=== PATIENT | female | born 1990 | race American Indian/Alaskan Native ===

== ENCOUNTER 2018-10-28 20:01 | Emergency (ER) | payer MEDICARE ==
[2018-10-28 20:14] VITALS: BP 150/113
--- NOTE | 2018-10-28 20:17 | Emergency Department Report ---
Blank Doc - Documentation Documentation: pt presents for packing removal states she had an abscses right axilla on monday only seen small amount of drainage no fever PMHx Lupus, HTN, CKD no tobacco non drinker +marijuana no other drug use
--- NOTE | 2018-10-28 20:17 | Emergency Department Report ---
- General Chief complaint: Recheck/Abnormal Lab/Rx Stated complaint: PACKING REMOVED Time Seen by Provider: 10/28/18 20:13 Source: patient Mode of arrival: Ambulatory Limitations: No Limitations - History of Present Illness Initial comments: pt is a 28 yo female who presents to the ED for packing removal from the right axilla. The patient states she had a I&D performed on the right axilla two days ago. Pt states she has only seen small amount of drainage. She denies fever or N/V/D. She is currently taking keflex. She has a hx of hidradenitis suppurativa. s PMHx Lupus, HTN, CKD no tobacco non drinker +marijuana no other drug use - Related Data Previous Rx's Medication Instructions Recorded Last Taken Type Acetaminophen/Codeine [Tylenol 1 tab PO Q4HR PRN #12 tablet 10/26/18 Unknown Rx /Codeine # 3 tab] cephALEXin [Keflex] 500 mg PO Q8HR #30 cap 10/26/18 Unknown Rx Chlorhexidine Gluconate [Hibiclens] 473 ml TP DAILY #1 liquid 10/28/18 Unknown Rx Allergies Allergy/AdvReac Type Severity Reaction Status Date / Time sulfamethoxazole Allergy Unknown Verified 10/28/18 20:04 [From Bactrim] trimethoprim [From Bactrim] Allergy Unknown Verified 10/28/18 20:04 Abscess Boil HPI - HPI Chief Complaint: Recheck/Abnormal Lab/Rx Stated Complaint: PACKING REMOVED Time Seen by Provider: 10/28/18 20:13 Home Medications: Previous Rx's Medication Instructions Recorded Last Taken Type Acetaminophen/Codeine [Tylenol 1 tab PO Q4HR PRN #12 tablet 10/26/18 Unknown Rx /Codeine # 3 tab] cephALEXin [Keflex] 500 mg PO Q8HR #30 cap 10/26/18 Unknown Rx Chlorhexidine Gluconate [Hibiclens] 473 ml TP DAILY #1 liquid 10/28/18 Unknown Rx Allergies/Adverse Reactions: Allergies Allergy/AdvReac Type Severity Reaction Status Date / Time sulfamethoxazole Allergy Unknown Verified 10/28/18 20:04 [From Bactrim] trimethoprim [From Bactrim] Allergy Unknown Verified 10/28/18 20:04 ED Review of Systems ROS: Stated complaint: PACKING REMOVED Other details as noted in HPI Comment: All other systems reviewed and negative ED Past Medical Hx - Past Medical History Previous Medical History?: Yes Hx Hypertension: Yes Hx Renal Disease: Yes Hx Arthritis: Yes Hx Asthma: Yes Additional medical history: lupus - Surgical History Past Surgical History?: Yes - Social History Smoking Status: Former Smoker Substance Use Type: Marijuana - Medications Home Medications: Home Medications Medication Instructions Recorded Confirmed Last Taken Type Acetaminophen/Codeine [Tylenol 1 tab PO Q4HR PRN #12 tablet 10/26/18 Unknown Rx /Codeine # 3 tab] cephALEXin [Keflex] 500 mg PO Q8HR #30 cap 10/26/18 Unknown Rx Chlorhexidine Gluconate [Hibiclens] 473 ml TP DAILY #1 liquid 10/28/18 Unknown Rx ED Physical Exam - General Limitations: No Limitations General appearance: alert, in no apparent distress - Head Head exam: Present: atraumatic, normocephalic - Eye Eye exam: Present: normal appearance, PERRL - ENT ENT exam: Present: mucous membranes moist - Respiratory Respiratory exam: Absent: respiratory distress - Neurological Exam Neurological exam: Present: alert, oriented X3 - Psychiatric Psychiatric exam: Present: normal affect, normal mood - Skin Skin exam: Present: other (right axilla with small incision that is clean, dry, intact with packing present, no obvious drainage, no induration, no fluctuance, no surrouding cellulitis, two other small areas with small opening with small amount of purulent drainage, no induration, no surrounding cellulitis) ED Course Vital Signs 10/28/18 20:09 Temperature 98.7 F Pulse Rate 105 H Respiratory 18 Rate Blood Pressure 150/113 O2 Sat by Pulse 100 Oximetry ED Medical Decision Making - Medical Decision Making packing removed and irrigated with 30 cc of saline, no surrounding cellulitis, no fluctuance/no induration, no obvious drainage pt has a couple small openings that are currently draining pt has hx of hidradenitis suppurativa, states they usually open and drain on their own regularly discussed with pt to complete her abx. pt given abx wash to use. discussed to wash and dry immediately. keep area clean and dry. do not get in hot tub, bath tub, or pool. follow up with pcp in the next 2-3 days. return to the ED for any new or worsening symptoms. Critical care attestation.: If time is entered above; I have spent that time in minutes in the direct care of this critically ill patient, excluding procedure time. ED Disposition Clinical Impression: Abscess packing removal Disposition: [id number] TO HOME OR SELFCARE Is pt being admited?: No Does the pt Need Aspirin: No Condition: Stable Instructions: Acute Wound Care (ED) Additional Instructions: please keep area clean and dry. may wash with abx wash then immediately dry. Please follow up with your primary care doctor in the next 2-3 days. return to the emergency room immediately for any new or worsening symptoms. Prescriptions: Chlorhexidine Gluconate [Hibiclens] 473 ml TP DAILY #1 liquid Referrals: VICKIE DUKE MD [Primary Care Provider] - 2-3 Days Time of Disposition: 20:42 Print Language: PRYDEINIG
== END 2018-10-28 20:44 | disposition home or self-care (01) ==
LOC: ED 20:01
DX: L02.411 Cutaneous abscess of right axilla (principal); I10 Essential (primary) hypertension; M19.90 Unspecified osteoarthritis, unspecified site; J45.909 Unspecified asthma, uncomplicated; F12.90 Cannabis use, unspecified, uncomplicated; Z87.891 Personal history of nicotine dependence; Z88.1 Allergy status to other antibiotic agents; Z88.2 Allergy status to sulfonamides
CPT/HCPCS: 99282

== ENCOUNTER 2019-03-25 07:33 | Emergency (ER) | payer MEDICARE ==
[2019-03-25] MEDS ORDERED: MORPHINE IM ONE (09:21)
[2019-03-25] MEDS ORDERED: ZOFRAN IM ONE (09:21)
[2019-03-25] MEDS ORDERED: XYLOCAINE 2% INFILTRATI ONE (09:21)
--- NOTE | 2019-03-25 09:25 | Emergency Department Report ---
- General Chief complaint: Skin/Abscess/Foreign Body Stated complaint: BOIL UNDER (L) ARM Time Seen by Provider: 03/25/19 09:19 Source: patient Mode of arrival: Ambulatory Limitations: No Limitations - History of Present Illness MD complaint: abscess/boil -: days(s) (3) Tetanus Up to Date: yes Location: LUE Severity: moderate Severity scale (0 -10): 5 Associated symptoms: denies other symptoms Treatments Prior to Arrival: none - Related Data Previous Rx's Medication Instructions Recorded Last Taken Type Acetaminophen/Codeine [Tylenol 1 tab PO Q4HR PRN #12 tablet 10/26/18 Unknown Rx /Codeine # 3 tab] cephALEXin [Keflex] 500 mg PO Q8HR #30 cap 10/26/18 Unknown Rx Chlorhexidine Gluconate [Hibiclens] 473 ml TP DAILY #1 liquid 10/28/18 Unknown R x Allergies Allergy/AdvReac Type Severity Reaction Status Date / Time sulfamethoxazole Allergy Unknown Verified 10/28/18 20:04 [From Bactrim] trimethoprim [From Bactrim] Allergy Unknown Verified 10/28/18 20:04 Abscess Boil HPI - HPI Chief Complaint: Skin/Abscess/Foreign Body Stated Complaint: BOIL UNDER (L) ARM Time Seen by Provider: 03/25/19 09:19 Home Medications: Previous Rx's Medication Instructions Recorded Last Taken Type Acetaminophen/Codeine [Tylenol 1 tab PO Q4HR PRN #12 tablet 10/26/18 Unknown Rx /Codeine # 3 tab] cephALEXin [Keflex] 500 mg PO Q8HR #30 cap 10/26/18 Unknown Rx Chlorhexidine Gluconate [Hibiclens] 473 ml TP DAILY #1 liquid 10/28/18 Unknown Rx Allergies/Adverse Reactions: Allergies Allergy/AdvReac Type Severity Reaction Status Date / Time sulfamethoxazole Allergy Unknown Verified 10/28/18 20:04 [From Bactrim] trimethoprim [From Bactrim] Allergy Unknown Verified 10/28/18 20:04 ED Review of Systems ROS: Stated complaint: BOIL UNDER (L) ARM Other details as noted in HPI Comment: All other systems reviewed and negative Constitutional: denies: chills, fever Respiratory: denies: cough, shortness of breath, SOB with exertion, wheezing Cardiovascular: denies: chest pain Gastrointestinal: denies: abdominal pain, nausea Musculoskeletal: denies: back pain Skin: lesions Neurological: denies: headache, weakness ED Past Medical Hx - Past Medical History Previous Medical History?: Yes Hx Hypertension: Yes Hx Renal Disease: Yes Hx Arthritis: Yes Hx Asthma: Yes Additional medical history: lupus - Surgical History Past Surgical History?: No - Social History Smoking Status: Current Every Day Smoker Substance Use Type: Marijuana - Medications Home Medications: Home Medications Medication Instructions Recorded Confirmed Last Taken Type Acetaminophen/Codeine [Tylenol 1 tab PO Q4HR PRN #12 tablet 10/26/18 Unknown Rx /Codeine # 3 tab] cephALEXin [Keflex] 500 mg PO Q8HR #30 cap 10/26/18 Unknown Rx Chlorhexidine Gluconate [Hibiclens] 473 ml TP DAILY #1 liquid 10/28/18 Unknown Rx ED Physical Exam - General Limitations: No Limitations General appearance: alert, in no apparent distress - Head Head exam: Present: atraumatic, normocephalic, normal inspection - Eye Eye exam: Present: normal appearance - ENT ENT exam: Present: normal exam, normal orophraynx, mucous membranes moist - Neck Neck exam: Present: normal inspection, full ROM. Absent: tenderness, meningismus, lymphadenopathy, thyromegaly - Respiratory Respiratory exam: Present: normal lung sounds bilaterally - Cardiovascular Cardiovascular Exam: Present: regular rate, normal rhythm, normal heart sounds - GI/Abdominal GI/Abdominal exam: Absent: tenderness - Neurological Exam Neurological exam: Present: alert, oriented X3, CN II-XII intact - Skin Skin exam: Present: other (left axilla abscess, 33 cm, fluctuant.) ED Course Vital Signs 03/25/19 07:40 Temperature 98.6 F Pulse Rate 111 H Respiratory 18 Rate Blood Pressure 197/142 O2 Sat by Pulse 99 Oximetry - I & D Left Shoulder Type of Procedure: Simple Blade Size: 11 I & D Procedure: betadine prep, sterile drapes applied, sterile dressing applied, gauze wick placed Progress: Left axilla abscess, suppurative hidradenitis. No complication. Critical care attestation.: If time is entered above; I have spent that time in minutes in the direct care of this critically ill patient, excluding procedure time. ED Disposition Clinical Impression: Abscess, Suppurative hidradenitis Disposition: TO HOME OR SELFCARE Is pt being admited?: No Condition: Stable Instructions: Abscess Incision and Drainage (ED) Referrals: [facility] [Provider Group] - 3-5 Days
[2019-03-25 10:46] VITALS: BP 169/100
== END 2019-03-25 10:46 | disposition home or self-care (01) ==
LOC: ED 07:33
DX: L73.2 Hidradenitis suppurativa (principal); L02.414 Cutaneous abscess of left upper limb; I10 Essential (primary) hypertension; J45.909 Unspecified asthma, uncomplicated; M19.90 Unspecified osteoarthritis, unspecified site; F17.200 Nicotine dependence, unspecified, uncomplicated; F12.10 Cannabis abuse, uncomplicated; Z88.2 Allergy status to sulfonamides
CPT/HCPCS: 10060; 96372; 99282; J2270; J2405

== ENCOUNTER 2019-03-28 09:40 | Emergency (ER) | payer MEDICARE ==
--- NOTE | 2019-03-28 10:52 | Emergency Department Report ---
ED Recheck HPI - General Chief Complaint: Skin/Abscess/Foreign Body Stated Complaint: LFT ARM PACKING REMOVAL Time Seen by Provider: 03/28/19 10:17 Source: patient Mode of arrival: Ambulatory Limitations: No Limitations - History of Present Illness Initial Comments: This is a 28-year-old -[place] female who presents to the emergency room for packing removal to wound of the left axilla. Past medical history of chronic kidney disease, hypertension, and lupus. Patient denies drainage, foul- smell, headache, chest pain, shortness of breath, palpitations, or dizziness. MD Complaint: wound re-check Onset/Timin -: days(s) Initial Visit For: abscess Returns Today for: wound recheck Symptoms Since Prior Visit: no new symptoms Context: planned re-check Associated Symptoms: none Treatments Prior to Arrival: Given Antibiotics on, Given Pain Meds on - Related Data Previous Rx's Medication Instructions Recorded Last Taken Type Acetaminophen/Codeine [Tylenol 1 tab PO Q4HR PRN #12 tablet 10/26/18 Unknown Rx /Codeine # 3 tab] cephALEXin [Keflex] 500 mg PO Q8HR #30 cap 10/26/18 Unknown Rx Chlorhexidine Gluconate [Hibiclens] 473 ml TP DAILY #1 liquid 10/28/18 Unknown Rx Acetaminophen/Codeine [Tylenol 1 tab PO Q6H PRN #14 tab 03/25/19 Unknown Rx /Codeine # 3 tab] Doxycycline Hyclate [Doxycycline 100 mg PO Q12HR #20 tab 03/25/19 Unknown Rx Hyclate TAB] Ketorolac [Toradol] 10 mg PO Q6H PRN #20 tablet 03/25/19 Unknown Rx Allergies Allergy/AdvReac Type Severity Reaction Status Date / Time sulfamethoxazole Allergy Unknown Verified 10/28/18 20:04 [From Bactrim] trimethoprim [From Bactrim] Allergy Unknown Verified 10/28/18 20:04 ED Review of Systems ROS: Stated complaint: LFT ARM PACKING REMOVAL Other details as noted in HPI Constitutional: denies: chills, fever Respiratory: denies: cough, shortness of breath, wheezing Cardiovascular: denies: chest pain, palpitations Gastrointestinal: denies: abdominal pain, nausea, diarrhea Skin: lesions (left axilla wound packing ). denies: rash Neurological: denies: headache, weakness, paresthesias Psychiatric: denies: anxiety, depression ED Past Medical Hx - Past Medical History Previous Medical History?: Yes Hx Hypertension: Yes Hx Renal Disease: Yes Hx Arthritis: Yes Hx Asthma: Yes Additional medical history: lupus - Surgical History Past Surgical History?: Yes - Social History Smoking Status: Never Smoker Substance Use Type: None - Medications Home Medications: Home Medications Medication Instructions Recorded Confirmed Last Taken Type Acetaminophen/Codeine [Tylenol 1 tab PO Q4HR PRN #12 tablet 10/26/18 Unknown Rx /Codeine # 3 tab] cephALEXin [Keflex] 500 mg PO Q8HR #30 cap 10/26/18 Unknown Rx Chlorhexidine Gluconate [Hibiclens] 473 ml TP DAILY #1 liquid 10/28/18 Unknown Rx Acetaminophen/Codeine [Tylenol 1 tab PO Q6H PRN #14 tab 03/25/19 Unknown Rx /Codeine # 3 tab] Doxycycline Hyclate [Doxycycline 100 mg PO Q12HR #20 tab 03/25/19 Unknown Rx Hyclate TAB] Ketorolac [Toradol] 10 mg PO Q6H PRN #20 tablet 03/25/19 Unknown Rx ED Physical Exam - General Limitations: No Limitations General appearance: alert, in no apparent distress, obese - Respiratory Respiratory exam: Present: normal lung sounds bilaterally. Absent: respiratory distress - Cardiovascular Cardiovascular Exam: Present: regular rate, normal rhythm. Absent: systolic murmur, diastolic murmur, rubs, gallop - GI/Abdominal GI/Abdominal exam: Present: soft, normal bowel sounds - Neurological Exam Neurological exam: Present: alert, oriented X3 - Psychiatric Psychiatric exam: Present: normal affect, normal mood - Skin Skin exam: Present: warm, dry, normal color, other (left axilla wound with packing, no surrounding cellulitis, mild discharge). Absent: intact, rash ED Course Vital Signs 03/28/19 03/28/19 03/28/19 09:49 10:03 10:24 Temperature 98.4 F 98.6 F Pulse Rate 90 80 113 H Respiratory 16 16 Rate Blood Pressure 219/135 Blood Pressure 125/70 [Left] Blood Pressure 200/130 [Right] O2 Sat by Pulse 100 99 Oximetry 03/28/19 03/28/19 03/28/19 10:49 11:01 12:04 Temperature Pulse Rate 113 H 93 H Respiratory 17 Rate Blood Pressure 200/130 Blood Pressure [Left] Blood Pressure 198/132 [Right] O2 Sat by Pulse Oximetry 03/28/19 12:46 Temperature Pulse Rate Respiratory Rate Blood Pressure Blood Pressure [Left] Blood Pressure 171/122 [Right] O2 Sat by Pulse Oximetry ED Recheck MDM - Differential Diagnosis Wound Recheck - Medical Decision Making Patient was examined by me. Patient is nontoxic appearing and stable. Blood pressure elevated. Given clonidine 0.2 mg by mouth once. Packing removed from wound to left axilla. No signs of infection, tenderness. Patient taking antibiotics and instructed to complete antibiotics. Patient admits to noncompliance of medication. Reports not taken blood pressure medication for 4- 5 days. Asymptomatic hypertension. Reevaluated blood pressure trending down. Instructed to continue taking lisinopril and metoprolol as prescribed from nephrologists and PCP. Follow up with PCP or return to the ER with worsening symptoms. Patient discharged home in stable condition. Critical care attestation.: If time is entered above; I have spent that time in minutes in the direct care of this critically ill patient, excluding procedure time. ED Disposition Clinical Impression: Abscess packing removal, Asymptomatic hypertension Disposition: TO HOME OR SELFCARE Is pt being admited?: No Condition: Stable Instructions: Acute Wound Care (ED), Hypertension (ED) Additional Instructions: Continue antibiotics as prescribed from prior visit. Continue to change dressing twice a day. 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 Follow up with her primary care doctor in the next 3-5 days for wound reevaluation and to monitor blood pressure. Return to the emergency room with worsening symptoms. Referrals: [facility] [Outside] - 3-5 Days [facility] [Provider Group] - 3-5 Days Time of Disposition: 12:40
[2019-03-28] MEDS ORDERED: CATAPRES ONE (10:54)
[2019-03-28] MEDS ORDERED: CATAPRES PO ONE (11:01)
[2019-03-28 12:46] VITALS: BP 171/122
== END 2019-03-28 12:53 | disposition home or self-care (01) ==
LOC: ED 09:40
DX: Z48.02 Encounter for removal of sutures (principal); I12.9 Hypertensive chronic kidney disease with stage 1 through stage 4 chronic kidney disease, or unspecified chronic kidney disease; N18.9 Chronic kidney disease, unspecified; J45.909 Unspecified asthma, uncomplicated; M32.9 Systemic lupus erythematosus, unspecified; Z88.2 Allergy status to sulfonamides; Z88.8 Allergy status to other drugs, medicaments and biological substances; Z79.899 Other long term (current) drug therapy
CPT/HCPCS: 99282

== ENCOUNTER 2021-01-03 09:49 | Emergency (ER) | payer MEDICARE ==
[2021-01-03] MEDS ORDERED: oxyCODONE /ACETAMINOPHEN 5-325MG TAB PO ONE (10:30)
[2021-01-03] MEDS ORDERED: KETOROLAC 10 MG TAB PO ONE (10:30)
[2021-01-03] MEDS ORDERED: KETOROLAC 60 MG/2 ML INJ IM ONE (10:31)
--- NOTE | 2021-01-03 10:31 | Event Note ---
ED Screening Note Date of service: 01/03/21 Time: 10:30 ED Screening Note: Patient complains of sudden onset of right wrist pain upon waking this morning History of lupus Denies history of gout or injury to the wrist Heart rate noted to be 135, wrist is severely tender to light touch This initial assessment/diagnostic orders/clinical plan/treatment(s) is/are subject to change based on patients health status, clinical progression and re- assessment by fellow clinical providers in the ED. Further treatment and workup at subsequent clinical providers discretion. Patient/guardian urged not to elope from the ED as their condition may be serious if not clinically assessed and managed. Initial orders include: X-ray Meds
--- NOTE | 2021-01-03 11:04 | XRay Report ---
Right wrist 3 views INDICATION: Wrist pain FINDINGS: Carpal bone alignment appears normal. No acute fractures seen. Distal radius and ulna appea r intact. IMPRESSION: No acute findings. Signer Name: Buster Rivera MD Signed: 01/03/2021 11:00 AM Workstation Name: [id number]
[2021-01-03 12:57] VITALS: BP 162/124
== END 2021-01-03 16:00 | disposition left against medical advice (07) ==
LOC: ED 09:49
DX: M79.89 Other specified soft tissue disorders (principal); Z53.21 Procedure and treatment not carried out due to patient leaving prior to being seen by health care provider
CPT/HCPCS: 73110; J1885